=== PATIENT | male | born 1995 | race Caucasian/White ===

== ENCOUNTER 2021-08-13 22:30 | Emergency (ER) | payer OTHER ==
[~2021-08-13] VITALS: Ht 180.3 cm; Wt 95.5 kg
[2021-08-13 23:12] LABS: BASO % 0.4 % (0.0-2.0); EOS # 0.2 K/mm3 (0.0-0.7); EOS % 1.9 % (0.0-4.0); GRAN # 3.8 K/mm3 (1.4-6.5); GRAN % 47.1 % (42.2-75.2); HEMATOCRIT 45.3 % (42.0-52.0); HEMOGLOBIN 15.6 g/dl (13.5-18.0); LYMPH # 3.4 K/mm3 (1.2-3.4); LYMPH % 42.4 % (20.0-51.0); MEAN CELL VOLUME 86 fl (80.0-100.0); MEAN CORPUSCULAR HEMOGLOBIN 30 pg (27-31); MEAN CORPUSCULAR HGB CONC 34 g/dl (33.0-37.0); MEAN PLATELET VOLUME 10.1 fl (7.4-10.4); MONO # 0.6 K/mm3 (0.1-0.6); PLATELET COUNT 276 K/mm3 (130-400); RED BLOOD COUNT 5.27 M/mm3 (4.20-5.60); REDCELL DISTRIBUTION WIDTH-CV 12.1 % (11.5-14.5)
[2021-08-13 23:26] LABS: ALBUMIN 4.3 gm/dL (3.5-5.0); CREATININE, serum 1.01 mg/dL (0.72-1.25); TOTAL PROTEIN 7.5 gm/dL (6.2-8.1)
[2021-08-14 02:41] VITALS: BP 127/70; PULSE 97; TEMP 98.7
== END 2021-08-14 02:41 | disposition home or self-care (01) ==
LOC: COL.ER 22:30
PROVIDERS: Physician Assistant
DX: J95.830 Postprocedural hemorrhage of a respiratory system organ or structure following a respiratory system procedure (principal)
CPT/HCPCS: J0330; J1100; J2250; J2405; J2704; J3010; J7120